=== PATIENT | female | born 1975 | race African-American/Black ===

== ENCOUNTER → 2018-11-02 | Outpatient (CLI) | payer OTHER ==
--- NOTE | 2018-11-02 10:15 | KCIC ---
Pelvic ultrasound dated 11/02/2018. No comparison available. CLINICAL INDICATION: Dysmenorrhea. Menorrhagia. FINDINGS: Transabdominal and transvaginal imaging was performed. Uterus measures 10.1 x 7.4 x 6.0 cm. There is a large heterogeneous mass at the posterior uterine body that measures 8.7 cm maximum dimension. Endometrial complex is heterogeneous and thickened measuring up to 2.2 cm. Right ovary measures 3.3 x 3.1 x 2.4 cm. Left ovary measures 3.0 x 2.9 x 1.9 cm. There is a simple appearing right ovarian cyst that measures up to 2.6 cm in size. No free fluid. Nabothian cysts at the endocervix. IMPRESSION: 1. No acute sonographic abnormality. 2. Fibroid uterus. 3. Thickened heterogeneous endometrial complex, nonspecific. This could be related to menstrual cycle. Underlying polyps or mass cannot be excluded. Correlate clinically. 4. Right ovarian cyst. Electronically signed by: Liu Green MD (11/02/2018 10:11 AM) [id number]
== END ==
LOC: KCIC US 08:44
DX: N83.291 Other ovarian cyst, right side (principal); D25.9 Leiomyoma of uterus, unspecified; N88.8 Other specified noninflammatory disorders of cervix uteri
CPT/HCPCS: 76830; 76856